=== PATIENT | male | born 1955 | race Two or more races ===

== ENCOUNTER → 2021-12-11 | Outpatient (CLI) | payer OTHER ==
[~2021-12-11] MED LIST: LOSARTAN-HCTZ1 EAC1; PNEU16DI2
== END | disposition home or self-care (01) ==
LOC: MRI 12:03
PROVIDERS: ATTEND Orthopaedic Surgery
DX: S83.201A Bucket-handle tear of unspecified meniscus, current injury, left knee, initial encounter (principal); M25.561 Pain in right knee; M25.562 Pain in left knee
CPT/HCPCS: 73718

== ENCOUNTER 2023-04-27 04:22 | Emergency (ER) | payer OTHER ==
[~2023-04-27] VITALS: Ht 177.8 cm; Wt 107.0 kg
[2023-04-27] MEDS ORDERED: NORFLEX100MG PO (08:00)
[2023-04-27] MEDS ORDERED: KETO10TA2 PO (08:00)
== END 2023-04-27 08:06 | disposition home or self-care (01) ==
LOC: ER 04:22
DX: M54.50 Low back pain, unspecified (principal); I10 Essential (primary) hypertension

== ENCOUNTER → 2024-08-31 | Emergency (ER) | payer OTHER ==
[~2024-08-31] VITALS: Ht 175.3 cm; Wt 102.5 kg
[~2024-08-31] MED LIST changes: +KETO10TA2 PO; +NORFLEX100MG PO
== END | disposition left against medical advice (07) ==
LOC: ER 22:31
DX: Z53.21 Procedure and treatment not carried out due to patient leaving prior to being seen by health care provider (principal)

== ENCOUNTER 2024-11-13 05:11 | Day surgery (SDC) | payer OTHER ==
[2024-11-08 09:21] VITALS: BP 133/74
[2024-11-08 13:26] LABS: COL EPI 105 SECONDS (82-175)
[~2024-11-13] VITALS: Ht 177.8 cm; Wt 103.0 kg
[~2024-11-13 05:11] MED LIST changes: +TAMS0.4C PO
[2024-11-13] MEDS ORDERED: CEFAZOLIN SODIUM 1,000 MG VIAL ONE ×2 (06:51→09:54)
[2024-11-13] MEDS ORDERED: FAMOTIDINE/PF 20 MG/10 ML SYRINGE IV SCH (09:30)
[2024-11-13] MEDS ORDERED: CEFAZOLIN SODIUM 1,000 MG VIAL IV SCH (09:30)
[2024-11-13] MEDS ORDERED: FAMOTIDINE/PF 20 MG/2 ML VIAL ONE (09:55)
== END 2024-11-13 12:00 | disposition home or self-care (01) ==
LOC: CIR.AMB 05:11
PROVIDERS: ATTEND Specialist
DX: K40.90 Unilateral inguinal hernia, without obstruction or gangrene, not specified as recurrent (principal)